=== PATIENT | female | born 1965 | race Caucasian/White ===

== ENCOUNTER 2018-06-26 09:00 | Inpatient (IN) ==
--- NOTE | 2018-06-26 09:27 | Emergency Department Note ---
Disposition Clinical Impression: Suicidal ideation, Planning to commit suicide Disposition: Admitted As Inpatient Condition: Fair Time of Disposition: 16:05 Psych HPI - General Chief Complaint: ED Psychiatric Symptoms Stated Complaint: SI Time Seen by Provider: 06/26/18 09:04 Source: patient Nursing Notes Reviewed: Yes Vital Signs Reviewed: Yes - History of Present Illness HPI Narrative: 52 female with past medical history bipolar, depression, anxiety, methamphetamine abuse presents with chief complaint suicidal ideation. She has had suicidal ideation since yesterday, with a plan to jump in front of a truck. Today she called EMS because she was afraid to . She has a history of suicidal ideation, plans, attempts, hospitalizations in the past. She did ingest 2-3 extra hydroxyzine and metoclopramide last night but did not ingest any extra medication this morning. She denies recent illicit drug use or alcohol use. She denies homicidal ideation, visual or auditory hallucinations. She states she is afraid that she will follow through with her plan if outside of the hospital. She complains of symptoms of depression and anxiety. She is recently homeless and does not have family nearby. Medical clearance labs perfo rmed at [facility] prior to transfer negative for acute abnormality. - Related Data Home Medications Medication Instructions Recorded Confirmed Atorvastatin [Lipitor] 40 mg PO HS 06/26/18 06/26/18 Diclofenac Sodium [Voltaren] 75 mg PO BID 06/26/18 06/26/18 Levothyroxine Sodium [Levoxyl] 75 mcg PO DAILY 06/26/18 06/26/18 Metoclopramide [Reglan] 10 mg PO TID 06/26/18 06/26/18 Sertraline [Zoloft] 50 mg PO DAILY 06/26/18 06/26/18 hydrOXYzine HCl [Hydroxyzine HCl] 50 mg PO TID 06/26/18 06/26/18 metFORMIN [Glucophage] 500 mg PO BIDWM 06/26/18 06/26/18 Allergies Allergy/AdvReac Type Severity Reaction Status Date / Time No Known Allergies Allergy Verified 06/26/18 06:05 All systems ED: reviewed and negative except as stated. Review of Systems: As Per HPI Past Medical History - Past Medical History Medical history: Reports: CVA, diabetes, hyperlipidemia, hypertension, thyroid disease Psychiatric history: Reports: anxiety, bipolar, depression, PTSD - Social History Smoking Status: Current every day smoker Smokeless Tobacco Status: No Alcohol use: Reports: none Drug use: Reports: none Physical Exam - General Limitations: no limitations, other (Anxious appearing female lying on the bed, does not appear in physical distress but crying frequently) General appearance: alert - Eye Eye exam: Present: normal appearance, PERRL, EOMI - Respiratory Respiratory exam: Present: normal lung sounds bilaterally - Cardiovascular Cardiovascular exam: Present: regular rate, normal rhythm, normal heart sounds - Abdominal Exam Abdominal exam: Present: soft, Non-Tender - Extremities Exam Extremities exam: Present: normal inspection - Neurological Exam Neurological exam: Present: alert, oriented X3 - Psychiatric Psychiatric exam: Present: depressed, anxious - Skin Skin exam: Present: warm, dry Course Course Narrative: Patient here with suicidal ideation, medical clearance labs performed prior to transfer at [facility] are negative for acute abnormality. Psychiatric unit contacted she will come evaluate the patient in the emergency department. Patient is currently medically stable and being monitored. Vital Signs Temperature 97.9 F 06/26/18 09:13 Pulse Rate 75 06/26/18 09:13 Respiratory Rate 16 06/26/18 09:13 Blood Pressure 136/113 06/26/18 09:13 O2 Sat by Pulse Oximetry 97 06/26/18 09:13 Temperature 98.3 F 06/26/18 13:01 Pulse Rate 82 06/26/18 13:01 Respiratory Rate 18 06/26/18 13:01 Blood Pressure 131/84 06/26/18 13:01 O2 Sat by Pulse Oximetry 95 06/26/18 13:01 Oxygen Delivery Oxygen Delivery Room Air Psych - MDM Narrative Medical decision making narrative: Psychiatry team evaluated the patient in the emergency department and accepted the patient to admission to . Patient pink slipped and transitioned from the emergency department to psychiatry unit in stable medical condition. - Lab Data Lab results reviewed: Yes I reviewed the patient's lab results. Lab Results 06/26/18 Range/Units 10:31 TSH 6.257 H (0.340-5.600) mcIU/mL Psychiatric Medical Clearance - Medical Clearance Checklist Medical History: No Social History Section defined Current Vitals: Last Vital Signs Temp 98.3 F 06/26/18 13:01 Pulse 82 06/26/18 13:01 Resp 18 06/26/18 13:01 BP 131/84 06/26/18 13:01 Pulse Ox 95 06/26/18 13:01 Abnormal Labs: Abnormal lab results TSH 6.257 mcIU/mL (0.340-5.600) H 06/26/18 10:31 Statement of Medical Clearance: I have evaluated the patient, reviewed diagnostic information, and certify that the patient's medical condition is sufficiently stable that transfer to the [facility] unit does not pose a significant risk of deterioration.
[2018-06-26] MEDS ORDERED: Nicotine 14 MG PATCH.TD24 TD SCH (09:30)
--- NOTE | 2018-06-26 10:36 | Emergency Department Note ---
Disposition Clinical Impression: Suicidal ideation Disposition: Admitted As Inpatient Condition: Fair Referrals: NONE,PCP [Primary Care Provider] - Forms: ED Satisfaction Letter Time of Disposition: 12:16 General Adult HPI - General Chief complaint: ED Psychiatric Symptoms Stated complaint: SI Time Seen by Provider: 06/26/18 09:04 Source: patient Limitations: no limitations - History of Present Illness Pain Scale: 0 - Related Data Home Medications Medication Instructions Recorded Confirmed Atorvastatin [Lipitor] 40 mg PO HS 06/26/18 06/26/18 Diclofenac Sodium [Voltaren] 75 mg PO BID 06/26/18 06/26/18 Levothyroxine Sodium [Levoxyl] 75 mcg PO DAILY 06/26/18 06/26/18 Metoclopramide [Reglan] 10 mg PO TID 06/26/18 06/26/18 Sertraline [Zoloft] 50 mg PO DAILY 06/26/18 06/26/18 hydrOXYzine HCl [Hydroxyzine HCl] 50 mg PO TID 06/26/18 06/26/18 metFORMIN [Glucophage] 500 mg PO BIDWM 06/26/18 06/26/18 Allergies Allergy/AdvReac Type Severity Reaction Status Date / Time No Known Allergies Allergy Verified 06/26/18 06:05 Past Medical History - Past Medical History Medical history: Reports: CVA, diabetes, hyperlipidemia, hypertension, thyroid disease Psychiatric history: Reports: anxiety, bipolar, depression, PTSD - Social History Smoking Status: Current every day smoker Smokeless Tobacco Status: No Alcohol use: Reports: none Drug use: Reports: none Physical Exam - General Limitations: no limitations General appearance: alert Course Vital Signs Temperature 97.9 F 06/26/18 09:13 Pulse Rate 75 06/26/18 09:13 Respiratory Rate 16 06/26/18 09:13 Blood Pressure 136/113 06/26/18 09:13 O2 Sat by Pulse Oximetry 97 06/26/18 09:13 Temperature 97.9 F 06/26/18 09:13 Pulse Rate 75 06/26/18 09:13 Respiratory Rate 16 06/26/18 09:13 Blood Pressure 136/113 06/26/18 09:13 O2 Sat by Pulse Oximetry 97 06/26/18 09:13 Oxygen Delivery Oxygen Delivery Room Air Medical Decision Making - Lab Data Lab Results 06/26/18 Range/Units 10:31 TSH 6.257 H (0.340-5.600) mcIU/mL Attestation Statement - Attestation Attestation: I examined this patient and my medical decision-making was reviewed with the MEDIA CENTER ASSISTANT/PA/Advanced Practice Nurse/Resident Physician. I agree with the documented findings, disposition and treatment plan as described except to the extent set forth below. Patient is suicidal and she does have a plan and she is not sure if she does have auditory hallucinations or visual hallucinations. She was transferred here for psychiatric evaluation. She is conversational. Skin color is good. Breathing comfortably. I did review the patient's labs. Because she does have a history of hypothyroidism this test TSH was ordered and these results are pending and can be followed up as a inpatient. I spoken with the psychiatric nurse. [id number] I did review the test results from the other hospital as well as our TSH which is only very minimally elevated and this can be further evaluated as a inpatient or as a outpatient. The patient will be admitted and has been accepted to the 1A service for psychiatric evaluation 1216
[2018-06-26] MEDS ORDERED: Haloperidol Lactate 5 MG/ML VIAL IM PRN (12:43)
[2018-06-26] MEDS ORDERED: Mag Hydrox/Al Hydrox/Simeth 30 ML UDC PO PRN (12:43)
[2018-06-26] MEDS ORDERED: MOM Conc 10 ML UD.LIQ PO PRN (12:43)
[2018-06-26] MEDS ORDERED: *HR* LORazepam 2 MG/ML VIAL IM PRN (12:43)
[2018-06-26] MEDS ORDERED: traZODone 50 MG TABLET PO PRN (12:43)
[2018-06-26] MEDS: *HR* Metformin 500 MG TABLET PO SCH (17:28)
[2018-06-26] MEDS: Diclofenac Sodium 75 MG TABLET PO SCH (21:18)
[2018-06-27] MEDS: Diclofenac Sodium 75 MG TABLET PO SCH ×2 (08:36→22:04)
[2018-06-27] MEDS: *HR* Metformin 500 MG TABLET PO SCH ×2 (08:36→16:56)
[2018-06-27] MEDS: Nicotine 21 MG PATCH.TD24 TD SCH (08:38)
[2018-06-27] MEDS: BuPROPion XL (24 HR) 150 MG TABLET PO SCH (09:45)
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
[2018-06-27] MEDS: Acetaminophen 325 MG TABLET PO PRN (12:29)
[2018-06-28] MEDS: Nicotine 21 MG PATCH.TD24 TD SCH (08:10)
[2018-06-28] MEDS: BuPROPion XL (24 HR) 150 MG TABLET PO SCH (08:11)
[2018-06-28] MEDS: Diclofenac Sodium 75 MG TABLET PO SCH ×2 (08:11→20:49)
[2018-06-28] MEDS: *HR* Metformin 500 MG TABLET PO SCH ×2 (08:11→17:19)
[2018-06-28] MEDS: Acetaminophen 325 MG TABLET PO PRN (09:17)
--- NOTE | 2018-06-28 09:47 | Psychiatry Progress Note ---
Date of Encounter: 06/28/18 Time of Encounter: 09:44 Subjective Interval history: Client very tearful and emotional today. States she didn't know it was possible to feel as sad as she does. Continues to endorse SI. Spent yesterday isolating to her room. Encouraged her to be more active and attend groups today. Client indicated she would try. Tolerating Wellbutrin but no benefit yet. Continues to say she feels "so tired." Review of Systems Constitutional: Reports: weakness Eyes: Denies: eye pain, vision change Ears, Nose, Throat: Denies: ear pain, throat pain, dental pain, hearing loss, congestion Cardiovascular: Denies: chest pain, palpitations, dyspnea on exertion Respiratory: Denies: cough, dyspnea, wheezes Gastrointestinal: Denies: abdominal pain, nausea, vomiting, diarrhea, constipation Musculoskeletal: Reports: other Neurological: Reports: weakness Results - Vital Signs Vital Signs: Temp Pulse Resp BP Pulse Ox 97.4 F L 72 18 137/90 97 06/28/18 09:00 06/28/18 09:00 06/28/18 09:00 06/28/18 09:00 06/28/18 09:00 Assessment and Plan (1) Major depression Current visit: Yes Status: Acute Plan: Continue hospitalization, Close observation, Suicide Precautions per unit protocol, Encourage participation in unit milieu, Group Therapy, Monitor sleep, Monitor appetite Risks, benefits, side effects, alternatives discussed w/pt: Yes Patient agreeable to treatment: Yes Qualifiers: Major depression recurrence: recurrent Active/Remission status: currently active Major depression episode severity: severe Psychotic features: without psychotic features Qualified Code(s): F33.2 - Major depressive disorder, recurrent severe without psychotic features (2) Post traumatic stress disorder Current visit: Yes Status: Acute Plan: Continue hospitalization, Close observation, Suicide Precautions per unit protocol, Encourage participation in unit milieu, Group Therapy, Monitor sleep, Monitor appetite Risks, benefits, side effects, alternatives discussed w/pt: Yes Patient agreeable to treatment: Yes Consult Discharge Plan - Plan Referrals: NONE,PCP [Primary Care Provider] - Psychiatry Exam - Constitutional Vitals: Temp Pulse Resp BP Pulse Ox 97.4 F L 72 18 137/90 97 06/28/18 09:00 06/28/18 09:00 06/28/18 09:00 06/28/18 09:00 06/28/18 09:00 General appearance: age & developmentally appropriate, well-groomed, well- nourished - Musculoskeletal Gait: normal Station: relaxed Strength & Tone: normal for patient - Psychiatric Patient Orientation: Yes Person, Yes Time, Yes Place Level of alertness: Alert Behavior: calm, cooperative Psychomotor activity: Normal Eye Contact: Maintains Eye Contact Mood Description: Depressed Affect description: congruent with mood, tearful Speech Volume: Normal Speech pattern: normal rate, normal rhythm, normal tone, fluent, spontaneous Language & Vocabulary: consistent with education Thought Process: Linear Thought Content: Yes Suicidal ideation, No Homicidal ideation, No Overt delusions Perceptual Disturbances: No Auditory hallucinations, No Visual hallucinations Attention Span Ability: Capable of Focused Attention Memory Description: Grossly Intact Patient Reliability: Reliable Historian Fund of knowledge: Yes abstraction ability, Yes aware of current events Intelligence Estimate: Average Judgment: Limited Insight: Partial
[2018-06-29] MEDS: *HR* Metformin 500 MG TABLET PO SCH ×2 (08:39→17:07)
[2018-06-29] MEDS: Nicotine 21 MG PATCH.TD24 TD SCH (08:39)
[2018-06-29] MEDS: Diclofenac Sodium 75 MG TABLET PO SCH ×2 (08:42→21:59)
[2018-06-29] MEDS: BuPROPion XL (24 HR) 150 MG TABLET PO SCH (08:42)
[2018-06-29] MEDS: Acetaminophen 325 MG TABLET PO PRN (10:08)
[2018-06-29] MEDS: *HR* LORazepam 1 MG TABLET PO PRN (13:23)
--- NOTE | 2018-06-29 13:30 | Psychiatry Progress Note ---
Date of Encounter: 06/29/18 Time of Encounter: 13:05 Subjective Interval history: "I'm having bad thoughts about things that happened in my past." She talks about feeling nervous, "But I'm nervous and scared all the time." She is stressed over her medical issues and not having support outside the hospital. She misses her family and grandchildren especially. Since her stroke, she has become estranged from her children. She feels bored on the unit and this creates more depression for her. She denies any side effects of her mediations. She states that getting a place to live and social support in the community will help her when she discharges. No active SI at this time, but she feels the thought is always in the back of her mind. Results - Vital Signs Vital Signs: Temp Pulse Resp BP Pulse Ox 97.5 F L 73 16 134/99 95 06/29/18 09:00 06/29/18 09:00 06/29/18 09:00 06/29/18 09:00 06/29/18 09:00 - Labs Labs: Laboratory Results - last 24 hr 06/29/18 08:31 POC Glucose 122 H Assessment and Plan (1) Major depression Current visit: Yes Status: Acute Plan: Continue hospitalization, Close observation, Suicide Precautions per unit protocol, Encourage participation in unit milieu, Group Therapy, Monitor sleep Risks, benefits, side effects, alternatives discussed w/pt: Yes Patient agreeable to treatment: Yes Qualifiers: Major depression recurrence: recurrent Active/Remission status: currently active Major depression episode severity: severe Psychotic features: without psychotic features Qualified Code(s): F33.2 - Major depressive disorder, recurrent severe without psychotic features Consult Discharge Plan - Plan Referrals: NONE,PCP [Primary Care Provider] - Psychiatry Exam - Constitutional Vitals: Temp Pulse Resp BP Pulse Ox 97.5 F L 73 16 134/99 95 06/29/18 09:00 06/29/18 09:00 06/29/18 09:00 06/29/18 09:00 06/29/18 09:00 General appearance: well-nourished, other Additional observations: Tired and lying in bed where she wants to talk. Does not want to leave her room and cry in front of others. - Musculoskeletal Strength & Tone: normal for patient - Psychiatric Patient Orientation: Yes Person, Yes Time, Yes Place, Yes Circumstance Level of alertness: Alert Behavior: anxious, tearful Psychomotor activity: Normal Eye Contact: Maintains Eye Contact Mood Description: Depressed, Anxious Affect description: congruent with mood Speech Volume: Normal Speech pattern: normal rate, normal rhythm, normal tone, fluent Language & Vocabulary: consistent with education Thought Process: Intact, Linear Thought Content: Yes Suicidal ideation (not active ) Attention Span Ability: Capable of Focused Attention Memory Description: Grossly Intact Patient Reliability: Reliable Historian Intelligence Estimate: Average Judgment: Fair Insight: Partial
[2018-06-30] MEDS: *HR* Metformin 500 MG TABLET PO SCH ×2 (10:01→16:03)
[2018-06-30] MEDS: Nicotine 21 MG PATCH.TD24 TD SCH (10:01)
[2018-06-30] MEDS: BuPROPion XL (24 HR) 150 MG TABLET PO SCH (10:02)
[2018-06-30] MEDS: Diclofenac Sodium 75 MG TABLET PO SCH ×2 (10:02→20:53)
[2018-06-30] MEDS: Acetaminophen 325 MG TABLET PO PRN (11:15)
--- NOTE | 2018-06-30 11:58 | Psychiatry Progress Note ---
Date of Encounter: 06/30/18 Time of Encounter: 11:40 Subjective Interval history: Patient stated she felt better yesterday after taking the Ativan and was able to function better. She was less anxious around others on the unit and was able to participate. She has a headache today and just took some Tylenol. She tells me that she has headaches all the time since her stroke. Her medical team is aware of it. She is nervous about housing and social support and she finds this to be the cause of her depression and anxiety. She does not feel as though she can be on her own. She denies any side effects of her Wellbutrin and is hopeful it will help. She knows her mood issues will improve when her social issues improve. No SI/HI. Results - Vital Signs Vital Signs: Temp Pulse Resp BP Pulse Ox 97.7 F 96 18 136/91 96 06/30/18 09:00 06/30/18 09:00 06/30/18 09:00 06/30/18 09:00 06/30/18 09:00 Assessment and Plan (1) Major depression Current visit: Yes Status: Acute Plan: Continue hospitalization, Close observation, Other (Working on community housing/placement) Risks, benefits, side effects, alternatives discussed w/pt: Yes Patient agreeable to treatment: Yes Qualifiers: Major depression recurrence: recurrent Active/Remission status: currently active Major depression episode severity: severe Psychotic features: without psychotic features Qualified Code(s): F33.2 - Major depressive disorder, recurrent severe without psychotic features Consult Discharge Plan - Plan Referrals: NONE,PCP [Primary Care Provider] - Psychiatry Exam - Constitutional Vitals: Temp Pulse Resp BP Pulse Ox 97.7 F 96 18 136/91 96 06/30/18 09:00 06/30/18 09:00 06/30/18 09:00 06/30/18 09:00 06/30/18 09:00 General appearance: age & developmentally appropriate, well-nourished Additional observations: She currently has a headache and is physically not feeling well. - Musculoskeletal Gait: normal Station: stooped - Psychiatric Patient Orientation: Yes Person, Yes Time, Yes Place, Yes Circumstance Level of alertness: Follows commands Behavior: anxious, tearful (gets mildy tearful again when comtemplating discahrge without housing. ) Psychomotor activity: Normal Eye Contact: Maintains Eye Contact Mood Description: Anxious Affect description: congruent with mood Speech Volume: Normal Speech pattern: normal rate, normal rhythm, normal tone, fluent Language & Vocabulary: consistent with education Thought Process: Intact, Linear, Goal Oriented Thought Content: Yes Suicidal ideation (denies) Memory Description: Recent Impaired Patient Reliability: Questionable Historian Fund of knowledge: Yes average Intelligence Estimate: Average Judgment: Fair Insight: Partial
[2018-06-30] MEDS: *HR* LORazepam 1 MG TABLET PO PRN (12:39)
[2018-06-30] MEDS: hydrOXYzine pamoate 25 MG CAPSULE PO SCH ×2 (17:41→20:54)
[2018-07-01] MEDS: hydrOXYzine pamoate 25 MG CAPSULE PO SCH ×3 (08:17→20:17)
[2018-07-01] MEDS: BuPROPion XL (24 HR) 150 MG TABLET PO SCH (08:17)
[2018-07-01] MEDS: *HR* Metformin 500 MG TABLET PO SCH ×2 (08:17→17:40)
[2018-07-01] MEDS: Diclofenac Sodium 75 MG TABLET PO SCH ×2 (08:17→20:17)
[2018-07-01] MEDS: Nicotine 21 MG PATCH.TD24 TD SCH (08:17)
--- NOTE | 2018-07-01 10:54 | Psychiatry Progress Note ---
Date of Encounter: 07/01/18 Time of Encounter: 10:40 Subjective Interval history: Patient denies any SI today and denies any issues with side effects of meds. She reiterates and continues to focus on her social issues and being afraid of not having support. She was asleep in her bed when I went to talk to her. She talked about how she is tired and sleeping so much, but how the Ativan helps with her anxiety, that she reports currently having. But she does not present as anxious at this time as she was asleep and snoring as I entered the room. We talked about her being interviewed tomorrow for community assistance and how the antidepressant takes a while to work regarding feeling more energized and less depressed. She states that she knows she will feel better once she has answers and community support and housing established. She is not feeling hopeless, but does feel helpless at this time. She has no energy to do anything and has a difficult time with focus and concentration. Results - Vital Signs Vital Signs: Temp Pulse Resp BP Pulse Ox 97.9 F 68 16 152/89 95 07/01/18 08:51 07/01/18 08:51 07/01/18 08:51 07/01/18 08:51 07/01/18 08:51 Assessment and Plan (1) Major depression Current visit: Yes Status: Acute Plan: Continue hospitalization, Close observation, Encourage participation in unit milieu Risks, benefits, side effects, alternatives discussed w/pt: Yes Patient agreeable to treatment: Yes Qualifiers: Major depression recurrence: recurrent Active/Remission status: currently active Major depression episode severity: severe Psychotic features: without psychotic features Qualified Code(s): F33.2 - Major depressive disorder, recurrent severe without psychotic features Consult Discharge Plan - Plan Referrals: NONE,PCP [Primary Care Provider] - Psychiatry Exam - Constitutional Vitals: Temp Pulse Resp BP Pulse Ox 97.9 F 68 16 152/89 95 07/01/18 08:51 07/01/18 08:51 07/01/18 08:51 07/01/18 08:51 07/01/18 08:51 General appearance: age & developmentally appropriate, unkempt Additional observations: Asleep in bed. She was observed yesterday out on the unit participating. - Psychiatric Patient Orientation: Yes Person, Yes Time, Yes Place, Yes Circumstance Level of alertness: Other (tired) Behavior: calm (does not appear anxious) Psychomotor activity: Normal Eye Contact: Maintains Eye Contact Mood Description: Depressed Affect description: congruent with mood Speech Volume: Normal Speech pattern: normal rate, normal rhythm, normal tone, fluent Language & Vocabulary: consistent with education Thought Process: Intact, Linear, Perseveration (on social issues; housing, food, money, family support) Attention Span Ability: Capable of Focused Attention Memory Description: Grossly Intact Patient Reliability: Questionable Historian Fund of knowledge: Yes abstraction ability Intelligence Estimate: Average Judgment: Fair Insight: Partial
[2018-07-01] MEDS: Acetaminophen 325 MG TABLET PO PRN (12:07)
[2018-07-01] MEDS ORDERED: hydrOXYzine pamoate 25 MG CAPSULE PO ONE (13:49)
[2018-07-01] MEDS: Nicotine 2 MG GUM BC PRN (20:51)
[2018-07-02] MEDS: Diclofenac Sodium 75 MG TABLET PO SCH ×2 (09:38→20:23)
[2018-07-02] MEDS: *HR* Metformin 500 MG TABLET PO SCH ×2 (09:38→17:11)
[2018-07-02] MEDS: BuPROPion XL (24 HR) 150 MG TABLET PO SCH (09:38)
[2018-07-02] MEDS: hydrOXYzine pamoate 25 MG CAPSULE PO SCH ×3 (09:38→20:23)
[2018-07-02] MEDS: Acetaminophen 325 MG TABLET PO PRN (09:39)
[2018-07-02] MEDS: Nicotine 2 MG GUM BC PRN ×3 (09:41→17:12)
--- NOTE | 2018-07-02 14:54 | Psychiatry Progress Note ---
Date of Encounter: 07/02/18 Time of Encounter: 14:30 Subjective Interval history: Patient tells me that she has been reading a booklet she was given her on the unit regarding women's mental health and feels it resonants with her. She is seeing more and more her depression. She still feels hopeless and helpless without outside assistance and aid. She is worried she will not be accepted to [facility]. She is meeting with [facility] today for an intake and will be discharged soon if they accept her. She repeats that this is her main stressor, not having housing and support. She is afraid and this causes her anxiety and depression. She denies any issue with her antid epressant, but does state her Vistaril prn usage needs to be adjusted. It helps, but seems to wear off before she can take another dose. No SI/HI. No A/V hallcinations. She has tried to be more active on the unit and staff report they are seeing her out at groups and meals. Results - Vital Signs Vital Signs: Temp Pulse Resp BP Pulse Ox 97.5 F L 76 16 134/92 95 07/02/18 09:00 07/02/18 09:00 07/02/18 09:00 07/02/18 09:00 07/02/18 09:00 Assessment and Plan (1) Major depression Current visit: Yes Status: Acute Plan: Continue hospitalization, Close observation, Suicide Precautions per unit protocol, Encourage participation in unit milieu, Monitor sleep, Monitor appetite Risks, benefits, side effects, alternatives discussed w/pt: Yes (add prn dose of Vistaril 25 mg BID to already scheduled TID 50 mg dose) Patient agreeable to treatment: Yes (Interview intake with [facility] today) Qualifiers: Major depression recurrence: recurrent Active/Remission status: currently active Major depression episode severity: severe Psychotic features: without psychotic features Qualified Code(s): F33.2 - Major depressive disorder, recurrent severe without psychotic features Consult Discharge Plan - Plan Referrals: [facility] [Outside] (You will be going to mental health respite at [facility] on discharge from the hospital. While there, you will be seen daily by the clinic counselors and counseling case manager, both individually and in group. [facility] staff will conduct an initial intake psychosocial/diagnostic assessment with you to discuss current symptoms, stressors, and goals. Together with the counselor you will develop an Individualized Service Plan (ISP) and determine the best course of treatment for you. Before leaving the [facility] you will be set up with a counselor at one of the [facility] locations to follow-up on an outpatient basis.) Psychiatry Exam - Constitutional Vitals: Temp Pulse Resp BP Pulse Ox 97.5 F L 76 16 134/92 95 07/02/18 09:00 07/02/18 09:00 07/02/18 09:00 07/02/18 09:00 07/02/18 09:00 General appearance: age & developmentally appropriate, well-nourished, dishev eled (mildly) - Musculoskeletal Gait: normal Station: stooped Strength & Tone: normal for patient - Psychiatric Patient Orientation: Yes Person, Yes Time, Yes Place, Yes Circumstance Level of alertness: Sedated (appears tired) Behavior: calm Psychomotor activity: Normal Eye Contact: Maintains Eye Contact Mood Description: Depressed Affect description: congruent with mood Speech Volume: Normal Speech pattern: normal rate, normal rhythm, normal tone, fluent Language & Vocabulary: consistent with education Thought Process: Intact, Linear, Goal Oriented Attention Span Ability: Capable of Focused Attention Memory Description: Grossly Intact Patient Reliability: Reliable Historian Fund of knowledge: Yes average Intelligence Estimate: Average Judgment: Good Insight: Partial
[2018-07-02] MEDS: hydrOXYzine pamoate 25 MG CAPSULE PO PRN (18:35)
[2018-07-03] MEDS: BuPROPion XL (24 HR) 150 MG TABLET PO SCH (08:20)
[2018-07-03] MEDS: Diclofenac Sodium 75 MG TABLET PO SCH (08:20)
[2018-07-03] MEDS: *HR* Metformin 500 MG TABLET PO SCH (08:21)
[2018-07-03] MEDS: hydrOXYzine pamoate 25 MG CAPSULE PO SCH (08:21)
[2018-07-03 08:52] VITALS: BP 123/75
--- NOTE | 2018-07-03 09:34 | Discharge Summary ---
Date of Encounter: 07/03/18 Time of Encounter: 08:30 Diagnosis - Discharge Diagnosis (1) Major depression Status: Acute Qualifiers: Major depression recurrence: recurrent Active/Remission status: currently active Major depression episode severity: severe Psychotic features: without psychotic features Qualified Code(s): F33.2 - Major depressive disorder, recurrent severe without psychotic features Code(s): F32.9 - Major depressive disorder, single episode, unspecified SNOMED Code(s): 757122734 Medications - Discharge Medications Prescriptions: hydrOXYzine HCl [Hydroxyzine HCl] 50 mg PO TID 30 Days #90 tablet hydrOXYzine pamoate [HydrOXYzine Pamoate] 25 mg PO BID PRN 30 Days #30 capsule PRN Reason: Insomnia BuPROPion XL (24 HR) [Wellbutrin Xl] 150 mg PO DAILY 30 Days #30 tab.er.24h Atorvastatin [Lipitor] 40 mg PO QAM 06/26/18 [History] Diclofenac Sodium [Voltaren] 75 mg PO BID PRN 06/26/18 [History] Levothyroxine Sodium [Levoxyl] 75 mcg PO QAM 06/26/18 [History] Metoclopramide [Reglan] 10 mg PO TID 06/26/18 [History] BuPROPion XL (24 HR) [Wellbutrin Xl] 150 mg PO DAILY 30 Days #30 tab.er.24h 07/03/18 [Rx] hydrOXYzine HCl [Hydroxyzine HCl] 50 mg PO TID 30 Days #90 tablet 07/03/18 [Rx] hydrOXYzine pamoate [HydrOXYzine Pamoate] 25 mg PO BID PRN 30 Days #30 capsule 07/03/18 [Rx] metFORMIN [Glucophage] 500 mg PO BIDWM tablet 07/03/18 [Rx] Allergy/AdvReac Type Severity Reaction Status Date / Time No Known Allergies Allergy Verified 06/26/18 18:12 Results Procedures and tests throughout hospitalization: Completed Lab Orders Category Date Time Status TSH [Thyroid Stimulating Hormone] Stat Lab 06/26/18 10:31 Completed Provider Date of admission: 06/26/18 12:25 Primary care physician: PCP NONE Consults: 06/26/18 14:32 Consult to Pastoral Services [CONS] Routine Comment: Psychiatry Exam - Constitutional Vitals: Temp Pulse Resp BP Pulse Ox 97.6 F 74 18 123/75 96 07/03/18 08:51 07/03/18 08:51 07/03/18 08:51 07/03/18 08:51 07/03/18 08:51 General appearance: age & developmentally appropriate, well-groomed - Musculoskeletal Gait: normal Strength & Tone: normal for patient - Psychiatric Patient Orientation: Yes Person, Yes Time, Yes Place, Yes Circumstance Level of alertness: Alert Behavior: cooperative (smiles and verbalizes relieved to go to [facility]) Psychomotor activity: Normal Eye Contact: Maintains Eye Contact Mood Description: Depressed (mildly. Not anxious) Affect description: congruent with mood Speech Volume: Normal Speech pattern: normal rate, normal rhythm, normal tone, fluent Language & Vocabulary: consistent with education Thought Process: Intact, Logical, Linear, Goal Oriented Attention Span Ability: Capable of Focused Attention Memory Description: Grossly Intact Patient Reliability: Reliable Historian Fund of knowledge: Yes average Intelligence Estimate: Average Judgment: Good Insight: Partial Hospital Course Hospital course: Ms. Santo is a 52 year old female who was admitted to 1A psychiatric unit after feeling extremely depressed and anxious and having thoughts of self harm. Patient acknowledged her history of substance abuse to the intake psychiatrist and she has been clean and sober for 2-3 months now. She states that since having a stroke 2 years ago, she has been having problems with depression and anxiety. She states her substance abuse, utilizing methamphetamine, gave her energy and the ability to focus. Then she realized that she was abusing/addicted to them and stopped using them. She states that she does not want to go back to doing that. She has been taking Zoloft, but it did not help with her depression and does not help with her energy level. She was evaluated by Dr. Mendez and Zoloft was discontinued. Dr. Jacobs reviewed Wellbutrin R/B/S with her, hopeful that the medication would help her depression more and possibly increase her energy level, focus and attention. Patient was agreeable to this and started on Wellbutrin XL 150 mg. Patient continued to be isolative on the unit. She was focused on the fact that she is homeless and has no community resources to help her out. She does not feel that she could survive on her own. She was noted to startle easily while on the unit and stayed in her room and slept quite a bit. She does have medical issues and frequent headaches secondary to her stroke which occurred 2 or 3 years ago. She is followed by medical for her medical issues in the community. She stated that the headaches were nothing new and they were worse than they ever have been. This was the villasenor issue making her depressed; feel hopeless and helpless. She denied any side effects of the Wellbutrin. She continued to verbalize feelings of anxiety on the unit. Sporadically she used Ativan 1 mg with good results for her anxiety. She also tried Vistaril 50 mg. She stated that the Vistaril helped also. She knew that that the Ativan could be nadia ctive. Her dose of Vistaril was altered on the unit, targeting her anxiety symptoms. Final dose that she found helpful was 50 mg TID and periodic Vistaril 25 mg PRN up to twice a day dosage helped calm her anxiety. By the end of her stay, she would participate on the unit during groups, came out to eat, but remained focus on discharge and housing. She denied any suicidal/homicidal ideation. [facility] was contacted to do evaluation for possible placement in their facility. Once they completed their evaluation, she was accepted into the program and will discharge to their facility. The patient was very happy about this and said she had a sense of relief. "I am grateful". She states that she believes with their assistance shall be able to get back on her feet and that they will be able to help her utilize community resources to get things back together. This greatly decreased her anxiety and help lift her depression. On the day of discharge, she was no longer feeling hopeless and helpless. She did still have low energy but was hopeful about the future. Her anxiety level was less. She denied any auditory or visual hallucinations and was happy to be discharged. Time spent discussing smoking cessation with patient: 3 to 10 minutes Does patient wish to continue nicotine replacement upon disc: No - Time Spent with Patient Total time spent providing and/or coordinating discharge services: 25 min Less than 30 minutes Specific discharge activities: Patient will need psychiatry and medical follow up at [facility]. She will need to have vitals monitored closely and EKG completed to follow her blood pressure and for QTc prolongation on new medications Assessment and Plan - Patient/Caregiver Discharge Instructions Activity: resume usual activities as tolerated Diet: regular diet - Follow up Plan Follow up with: NONE,PCP [Primary Care Provider] - Functional capacity at discharge: independent ambulation Overall status at discharge: Stable (Patient will need psychiatry and medical follow up at [facility]. She will need to have vitals moniotred closely and EKG completed to follow her blood pressure and for QTc prolongation on new medications) Disposition: Home, Self-Care Quality - Multiple Antipsychotics Patient discharged on 2 or more antipsychotic medications: No Procedures - Procedures Procedures: Medication Management, Crisis Stabilization, Supportive Therapy, Group Therapy
[2018-07-03] MEDS: Nicotine 2 MG GUM BC PRN (10:03)
[2018-07-03] MEDS: hydrOXYzine pamoate 25 MG CAPSULE PO PRN (11:14)
== END 2018-07-03 11:59 | disposition home or self-care (01) | DRG 751 ==
LOC: EMEROOARM 09:00 → SUATTDRO 12:25 → 1ANU 12:25
PROVIDERS: ADMIT Psychiatry & Neurology Psychiatry; ATTEND Psychiatry & Neurology Psychiatry